=== PATIENT | male | born 1985 | race Hispanic/Latino ===

== ENCOUNTER 2016-11-17 16:36 | Emergency (ER) | payer MEDICAID ==
[2016-11-17 16:37] VITALS: BMI 30.7
[2016-11-17 17:04] VITALS: BP 117/77; PULSE 95; RESP 20; TEMP 98.5; O2SAT 97
[2016-11-17] MEDS ORDERED: Tmp-Smz 800 mg-160 mg DS Tab ONE (17:06)
[2016-11-17] MEDS ORDERED: Bacitracin 500 Units/gm Oint Foilpak UD ONE (17:06)
[2016-11-17] MEDS ORDERED: Amoxicillin-Clav 875-125 mg Tab PO STA (17:32)
[2016-11-17] MEDS ORDERED: Amoxicillin-Clav 875-125 mg Tab PO ONE (17:38)
--- NOTE | 2016-11-17 18:27 | C.PDOC ---
History Of Present Illness Patient is a 31 year old male who presents to the ER with a complaint of right ear pain. Patient was seen 2 days ago by PMD who gave Rx for ear drops. Denies fever, change in hearing, or discharge. Time Seen by Provider: 11/17/16 17:05 Chief Complaint (Nursing): ENT Problem History Per: Patient History/Exam Limitations: None Onset/Duration Of Symptoms: Days (2) Current Symptoms Are (Timing): Still Present Symptoms Have Been: Continuous Anticoagulant/Antiplatlet Use?: Unknown Recent Aspirin Use: Unknown Past Medical History Reviewed: Historical Data, Nursing Documentation, Vital Signs Vital Signs: Last Vital Signs Temp 98.5 F 11/17/16 16:58 Pulse 95 H 11/17/16 16:58 Resp 20 11/17/16 16:58 BP 117/77 11/17/16 16:58 Pulse Ox 97 11/17/16 18:33 - Medical History PMH: No Chronic Diseases Surgical History: No Surg Hx Family History: States: Unknown Family Hx - Social History Hx Tobacco Use: Yes Hx Alcohol Use: No Hx Substance Use: No - Immunization History Hx Tetanus Toxoid Vaccination: Yes Hx Influenza Vaccination: No Hx Pneumococcal Vaccination: No Review Of Systems Constitutional: Negative for: Fever, Chills ENT: Positive for: Ear Pain (Right). Negative for: Ear Discharge, Other ( Hearing change) Physical Exam - Physical Exam Appears: Non-toxic, No Acute Distress Skin: Normal Color, Warm, Dry Head: Atraumatic, Normacephalic Ear(s): Left: Normal, Right: TM Erythema, Other (Pain to pinna w/ tugging) Oral Mucosa: Moist Throat: Normal, No Erythema, No Exudate Neck: Normal, Supple Chest: Symmetrical, No Tenderness Cardiovascular: Rhythm Regular, No Murmur Respiratory: Normal Breath Sounds, No Wheezing Neurological/Psych: Oriented x3, Normal Speech, Normal Cognition ED Course And Treatment O2 Sat by Pulse Oximetry: 97 (Room air) Pulse Ox Interpretation: Normal Progress Note: Augmentin and toradol administered. Disposition - Disposition Referrals: Celestino Zhang, [Non-Staff] - Disposition: HOME/ ROUTINE Disposition Time: 17:20 Condition: GOOD Additional Instructions: Thank you for letting us take care of you today. Your provider was Dr. Chand. You were treated for an ear infection. The emergency medical care you received today was directed at your acute symptoms. If you were prescribed any medication, please fill it and take as directed. It may take several days for your symptoms to resolve. Return to the Emergency Department if your symptoms worsen, do not improve, or if you have any other problems. Please contact your doctor or call one of the physicians/clinics you have been referred to that are listed on the Patient Visit Information form that is included in your discharge packet. Bring any paperwork you were given at discharge with you along with any medications you are taking to your follow up visit. Our treatment cannot replace ongoing medical care by a primary care provider (PCP) outside of the emergency department. Thank you for allowing the [facility] team to be part of your care today. Follow up with your doctor in 2-3 days for re-evaluation. Prescriptions: Amoxicillin/Clavulanate [Augmentin 875 MG-125 MG] 1 tab PO BID #14 tab Ibuprofen [Motrin] 600 mg PO Q6 PRN #20 tab PRN Reason: Pain, Moderate (4-7) Instructions: Otitis Externa (ED) - Clinical Impression Clinical Impression: Otitis externa - Scribe Statement The provider has reviewed the documentation as recorded by the Scribe Abelardo Kenney All medical record entries made by the Scribe were at my direction and personally dictated by me. I have reviewed the chart and agree that the record accurately reflects my personal performance of the history, physical exam, medical decision making, and the department course for this patient. I have also personally directed, reviewed, and agree with the discharge instructions and disposition.
== END 2016-11-17 17:43 | disposition home or self-care (01) ==
LOC: C.ER 16:36
DX: H60.91 Unspecified otitis externa, right ear (principal)
CPT/HCPCS: 96372; 99283; J1885

== ENCOUNTER 2017-02-25 13:41 | Emergency (ER) | payer MEDICAID ==
[2017-02-25 13:53] VITALS: BMI 39.4
[2017-02-25 13:56] VITALS: TEMP 98.3
--- NOTE | 2017-02-25 14:48 | C.PDOC ---
History Of Present Illness 31 yr old male presents to the ER for evaluation of left cheek swelling which he woke up with this morning. Patient states the pain radiates down to neck. Patient states he has been having left sided tooth pain for the last couple days and has an appointment with the dentist tomorrow. Patient denies taking any medication, difficulty breathing, difficulty swallowing, fever, chills, throat swelling or throat pain. Time Seen by Provider: 02/25/17 14:13 Chief Complaint (Nursing): Abnormal Skin Integrity History Per: Patient History/Exam Limitations: None Onset/Duration Of Symptoms: Hrs Current Symptoms Are (Timing): Still Present Past Medical History Reviewed: Historical Data, Nursing Documentation, Vital Signs Vital Signs: Last Vital Signs Temp 98.3 F 02/25/17 13:53 Pulse 74 02/25/17 15:06 Resp 20 02/25/17 15:06 BP 120/70 02/25/17 15:06 Pulse Ox 100 02/25/17 15:38 Family History: States: No Known Family Hx - Social History Hx Tobacco Use: Yes Hx Alcohol Use: Yes Hx Substance Use: No - Immunization History Hx Tetanus Toxoid Vaccination: Yes Hx Influenza Vaccination: No Hx Pneumococcal Vaccination: No Review Of Systems Except As Marked, All Systems Reviewed And Found Negative. Constitutional: Positive for: Other ((+) Left cheek swelling). Negative for: Fever, Chills ENT: Negative for: Mouth Swelling, Throat Pain Physical Exam - Physical Exam Appears: Non-toxic, No Acute Distress Skin: Warm, Dry, No Rash Head: Atraumatic, Normacephalic Eye(s): bilateral: Normal Inspection, PERRL, EOMI Ear(s): Bilateral: Normal Nose: Normal Oral Mucosa: Moist Teeth: Caries, Other (Left lateral mandibular incisor tenderness) Gingiva: No Erythema, No Swelling Throat: Normal, No Erythema, No Exudate Neck: Normal, Normal ROM, Supple Lymphatic: Adenopathy (Left submandibular lymphadenopathy) Chest: Symmetrical Cardiovascular: Rhythm Regular, No Murmur Respiratory: Normal Breath Sounds, No Rales, No Rhonchi, No Stridor, No Wheezing Extremity: Normal ROM, No Swelling Neurological/Psych: Oriented x3, Normal Speech, Normal Motor ED Course And Treatment O2 Sat by Pulse Oximetry: 100 (RA) Pulse Ox Interpretation: Normal Progress Note: Pt is afebrile. No SOB. No difficulty breathing or swallowing. Instructed to follow up with dentist as scheudled tomorrow and OMD in 1-2 days . Disposition - Disposition Disposition: HOME/ ROUTINE Disposition Time: 14:45 Condition: STABLE Additional Instructions: Follow up with your primary medical doctor or clinic in 2-5 days for further evaluation. Take medications as prescribed. Return to the emergency department at any time if symptoms persist or worsen. 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 - Scribe Statement The provider has reviewed the documentation as recorded by the Scribe Reshma Heaton All medical record entries made by the Scribe were at my direction and personally dictated by me. I have reviewed the chart and agree that the record accurately reflects my personal performance of the history, physical exam, medical decision making, and the department course for this patient. I have also personally directed, reviewed, and agree with the discharge instructions and disposition.
[2017-02-25 15:07] VITALS: BP 120/70; PULSE 74; RESP 20
[2017-02-25 15:36] VITALS: O2SAT 100
== END 2017-02-25 15:25 | disposition home or self-care (01) ==
LOC: C.ER 13:41
DX: K08.89 Other specified disorders of teeth and supporting structures (principal)

== ENCOUNTER 2017-04-07 19:11 | Emergency (ER) | payer MEDICAID ==
[2017-04-07 19:11] VITALS: BMI 39.4
[2017-04-07 19:24] VITALS: O2SAT 98
--- NOTE | 2017-04-07 19:28 | C.PDOC ---
History Of Present Illness 31 c/o painless swelling of his penis for the last 5 days and diffuse abdominal pain for the last week. no exac or reliev fx. denies any pmh or psh. he admits to pcp use last yesterday. unaware of any trauma. denies urinary complaints. Time Seen by Provider: 04/07/17 19:27 Chief Complaint (Nursing): Male Genitourinary Past Medical History Vital Signs: Last Vital Signs Temp 98 F 04/07/17 21:57 Pulse 80 04/07/17 21:57 Resp 14 04/07/17 21:57 BP 130/70 04/07/17 21:57 Pulse Ox 98 04/07/17 21:57 Family History: States: Other Other Family History: nc - Social History Hx Tobacco Use: Yes Hx Alcohol Use: Yes Hx Substance Use: Yes - Immunization History Hx Tetanus Toxoid Vaccination: Yes Hx Influenza Vaccination: No Hx Pneumococcal Vaccination: No Review Of Systems Constitutional: Negative for: Fever, Chills Cardiovascular: Negative for: Chest Pain Respiratory: Negative for: Cough, Shortness of Breath Gastrointestinal: Positive for: Abdominal Pain. Negative for: Nausea, Vomiting , Diarrhea Genitourinary: Negative for: Dysuria, Penile Discharge, Scrotal Pain, Penile Pain Physical Exam - Physical Exam Appears: Non-toxic, No Acute Distress Skin: Warm, Dry Eye(s): bilateral: PERRL Nose: No Epistaxis Oral Mucosa: Moist Cardiovascular: Rhythm Regular Respiratory: No Decreased Breath Sounds, No Accessory Muscle Use Gastrointestinal/Abdominal: Soft, Tenderness (mild mainly right side), No Distention, No Guarding, No Rebound Male Genital: No Testicular Tenderness, No Testicular Swelling, No Scrotal Swelling, Other (no significant abnormality of the penis is noted- no significant swelling, erythema, discharge, lesions, or tenderness) Neurological/Psych: Oriented x3 ED Course And Treatment - Laboratory Results Result Diagrams: 04/07/17 20:05 04/07/17 20:05 O2 Sat by Pulse Oximetry: 98 Medical Decision Making Medical Decision Making: CT abdo/pelvis EXAM: CT Abdomen and Pelvis With Intravenous Contrast CLINICAL HISTORY: 31 years old, male; Pain; Abdominal pain TECHNIQUE: Axial computed tomography images of the abdomen and pelvis with intravenous contrast. All CT scans at this facility use one or more dose reduction techniques, viz.: automated exposure control; ma/kV adjustment per patient size (including targeted exams where dose is matched to indication; i.e. head); or iterative reconstruction technique. Coronal and sagittal reformatted images were created and reviewed. CONTRAST: 100 mL of [id number] administered intravenously. COMPARISON: No relevant prior studies available. FINDINGS: Lower thorax: Hypoventilatory changes/atelectasis. ABDOMEN: Liver: No acute abnormality as visualized. No mass. Gallbladder and bile ducts: No calcified stones. No ductal dilation. Ultrasound can provide more sensitive evaluation of the biliary system. Pancreas: No acute abnormality as visualized. Spleen: No splenomegaly. Adrenals: No acute abnormality as visualized Kidneys and ureters: Symmetric enhancement. No hydronephrosis. Stomach and bowel: No acute abnormality as visualized. No obstruction. No definitive focus of mucosal thickening. Retained fecal material in the colon. Appendix: No findings to suggest acute appendicitis. PELVIS: Bladder: No acute abnormality as visualized. Reproductive: No acute abnormality as visualized. ABDOMEN and PELVIS: Intraperitoneal space: No acute No free air. No significant fluid collection. Bones: No acute fracture. Minimal degenerative changes. Vasculature: No acute abnormality as visualized. No abdominal aortic aneurysm. Lymph nodes: No acute abnormality as visualized. No enlarged lymph nodes. IMPRESSION: No definitive acute CT finding to correspond to reported history. Disposition - Disposition Referrals: [facility] at [facility] [Outside] Jose Galvez Jr., MD [Staff Provider] - Disposition: HOME/ ROUTINE Disposition Time: 21:44 Condition: STABLE Additional Instructions: Please follow up with a primary doctor and also with the urologist. Return to the ER for any worsening symptoms, severe pain, repeated vomiting, fever or for any other concerns. Instructions: Acute Abdominal Pain (ED) Forms: General Discharge Instructions, [employer] (Mongolian) - Clinical Impression Clinical Impression: Abdominal pain
[2017-04-07 20:08] LABS: BASO % 0.5 % (0.0-2.0); EOS # 0.1 K/uL (0.0-0.7); EOS % 1.2 % (0.0-4.0); HEMATOCRIT 46.1 % (35.0-51.0); LYMPH # 1.3 K/uL (1.0-4.3); LYMPH % 15.3 % (20.0-40.0); MEAN CELL VOLUME 85.7 fL (80.0-94.0); MEAN CORPUSCULAR HEMOGLOBIN 28.6 pg (27.0-31.0); MEAN CORPUSCULAR HGB CONC 33.4 g/dL (33.0-37.0); MEAN PLATELET VOLUME 9.4 fL (7.2-11.7); MONO # 0.5 K/uL (0.0-0.8); MONO % 6.2 % (0.0-10.0); NRBC % 0.1 % (0.0-2.0); RED CELL DISTRIBUTION WIDTH 13.2 % (11.5-14.5); WHITE BLOOD COUNT 8.7 K/uL (4.8-10.8)
[2017-04-07 20:26] LABS: ALB/GLOB RATIO 1.5 (1.0-2.1); ALKALINE PHOSPHATASE 83 U/L (38-126); ALT/SGPT 48 U/L (21-72); AST/SGOT 20 U/L (17-59); BILIRUBIN,TOTAL 0.6 mg/dL (0.2-1.3); BLOOD UREA NITROGEN 15 mg/dL (9-20); CALCIUM 8.9 mg/dl (8.6-10.4); CARBON DIOXIDE 23 mmol/L (22-30); CHLORIDE 101 mmol/L (98-107); GFR AFRICAN-AMERICAN > 60; GLUCOSE,RANDOM 83 mg/dL (75-110); POTASSIUM 3.8 mmol/L (3.6-5.2); SODIUM 137 mmol/L (132-148); TOTAL PROTEIN 7.8 g/dL (6.3-8.3)
[2017-04-07 20:27] LABS: RBC URINE < 1 /hpf (0-3); URINE BILIRUBIN NEGATIVE (NEGATIVE); URINE BLOOD NEGATIVE (NEGATIVE); URINE COLOR Straw (YELLOW); URINE GLUCOSE (UA) NORMAL (Normal); URINE KETONE NEGATIVE (NEGATIVE); URINE LEUKOCYTE ESTERASE NEG Leu/uL (Negative); URINE PROTEIN NEGATIVE (NEGATIVE); URINE UROBILINOGEN NORMAL mg/dL (0.2-1.0); WBC URINE < 1 /hpf (0-5)
[2017-04-07] MEDS ORDERED: Iodixanol 320 MG/ML 100 ML BOTTLE IV ONE (20:56)
--- NOTE | 2017-04-07 21:41 | CT ---
EXAM: CT Abdomen and Pelvis With Intravenous Contrast CLINICAL HISTORY: 31 years old, male; Pain; Abdominal pain TECHNIQUE: Axial computed tomography images of the abdomen and pelvis with intravenous contrast. All CT scans at this facility use one or more dose reduction techniques, viz.: automated exposure control; ma/kV adjustment per patient size (including targeted exams where dose is matched to indication; i.e. head); or iterative reconstruction technique. Coronal and sagittal reformatted images were created and reviewed. CONTRAST: 100 mL of administered intravenously. COMPARISON: No relevant prior studies available. FINDINGS: Lower thorax: Hypoventilatory changes/atelectasis. ABDOMEN: Liver: No acute abnormality as visualized. No mass. Gallbladder and bile ducts: No calcified stones. No ductal dilation. Ultrasound can provide more sensitive evaluation of the biliary system. Pancreas: No acute abnormality as visualized. Spleen: No splenomegaly. Adrenals: No acute abnormality as visualized Kidneys and ureters: Symmetric enhancement. No hydronephrosis. Stomach and bowel: No acute abnormality as visualized. No obstruction. No definitive focus of mucosal thickening. Retained fecal material in the colon. Appendix: No findings to suggest acute appendicitis. PELVIS: Bladder: No acute abnormality as visualized. Reproductive: No acute abnormality as visualized. ABDOMEN and PELVIS: Intraperitoneal space: No acute No free air. No significant fluid collection. Bones: No acute fracture. Minimal degenerative changes. Vasculature: No acute abnormality as visualized. No abdominal aortic aneurysm. Lymph nodes: No acute abnormality as visualized. No enlarged lymph nodes. IMPRESSION: No definitive acute CT finding to correspond to reported history.
[2017-04-07 21:58] VITALS: BP 130/70; PULSE 80; RESP 14; TEMP 98
== END 2017-04-07 21:58 | disposition home or self-care (01) ==
LOC: C.ER 19:11
DX: R10.9 Unspecified abdominal pain (principal); Z87.891 Personal history of nicotine dependence
CPT/HCPCS: 74177; 80053; 81001; 83690; 85025; 99283; Q9967

== ENCOUNTER 2017-06-18 00:36 | Emergency (ER) | payer MEDICAID ==
[2017-06-18 00:37] VITALS: BMI 39.4
[2017-06-18 00:48] VITALS: BP 122/80; PULSE 74; RESP 74; TEMP 98.2; O2SAT 96
--- NOTE | 2017-06-18 01:01 | C.PDOC ---
History Of Present Illness 32 year old male presents to the ER with a complaint of nasal congestion and sinus pressure for the past few months. Patient states he used an unknown nasal spray with no relief. Denies cough, SOBor fever Time Seen by Provider: 06/18/17 00:45 Chief Complaint (Nursing): Cough, Cold, Congestion History Per: Patient History/Exam Limitations: no limitations Onset/Duration Of Symptoms: Days Current Symptoms Are (Timing): Still Present Location Of Pain: None Sick Contacts (Context): None Associated Symptoms: Nasal Congestion, Other (Sinus pressure) Ear Symptoms: Bilateral: None Recent travel outside of the [place]: No Past Medical History Reviewed: Historical Data, Nursing Documentation, Vital Signs Vital Signs: Last Vital Signs Temp 98.2 F 06/18/17 00:47 Pulse 74 06/18/17 00:47 Resp 74 H 06/18/17 00:47 BP 122/80 06/18/17 00:47 Pulse Ox 96 06/18/17 01:35 Family History: States: Unknown Family Hx - Social History Hx Tobacco Use: Yes Hx Alcohol Use: No (DENIED) Hx Substance Use: Yes - Immunization History Hx Tetanus Toxoid Vaccination: Yes Hx Influenza Vaccination: No Hx Pneumococcal Vaccination: No Review Of Systems ENT: Positive for: Nose Congestion, Other (Sinus pressure) Respiratory: Negative for: Cough, Shortness of Breath Physical Exam - Physical Exam Appears: Non-toxic, No Acute Distress Skin: Normal Color, Warm, Dry Head: Atraumatic, Normacephalic, Tenderness (Frontal sinus) Eye(s): bilateral: Normal Inspection, PERRL Ear(s): Bilateral: Normal Nose: Normal Oral Mucosa: Moist Throat: Normal, No Erythema, No Exudate Neck: Normal, No Midline Cervical Tenderness, No Paracervical Tenderness, Supple Chest: Symmetrical, No Tenderness Cardiovascular: Rhythm Regular Respiratory: Normal Breath Sounds, No Rales, No Rhonchi, No Wheezing Gastrointestinal/Abdominal: Soft, No Tenderness Neurological/Psych: Oriented x3, Normal Speech ED Course And Treatment O2 Sat by Pulse Oximetry: 96 (Room air) Pulse Ox Interpretation: Normal Progress Note: Patient is resting comfortably in no acute distress. Will discharge home with Rx and instructions to follow up with clinic or return to ER if symptoms worsen. 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 - Scribe Statement The provider has reviewed the documentation as recorded by the Scribeliezer Kenney All medical record entries made by the Ozielibeliezer were at my direction and personally dictated by me. I have reviewed the chart and agree that the record accurately reflects my personal performance of the history, physical exam, medical decision making, and the department course for this patient. I have also personally directed, reviewed, and agree with the discharge instructions and disposition.
== END 2017-06-18 01:05 | disposition home or self-care (01) ==
LOC: C.ER 00:36
DX: J30.9 Allergic rhinitis, unspecified (principal); Z87.891 Personal history of nicotine dependence

== ENCOUNTER 2017-06-25 20:57 | Emergency (ER) | payer MEDICAID ==
[2017-06-25 20:58] VITALS: BMI 39.4
[2017-06-25 21:09] VITALS: BP 155/82; PULSE 78; RESP 18; TEMP 98.3; O2SAT 97
--- NOTE | 2017-06-25 21:39 | C.PDOC ---
History Of Present Illness 32 year old male presents to the ER with a complaint of a pimple behind his right ear for the past 2 days after getting his hair cut. Patient reports he has pain to the area and to the right ear. Denies fever or drainage. Time Seen by Provider: 06/25/17 21:27 Chief Complaint (Nursing): Abnormal Skin Integrity History Per: Patient History/Exam Limitations: no limitations Onset/Duration Of Symptoms: Days Current Symptoms Are (Timing): Still Present Location Of Injury: Right: Face (ear area) Quality Of Symptoms: Painful. denies: Draining Recent travel outside of the [place]: No Past Medical History Reviewed: Historical Data, Nursing Documentation, Vital Signs Vital Signs: Last Vital Signs Temp 98.3 F 06/25/17 21:07 Pulse 78 06/25/17 21:07 Resp 18 06/25/17 21:07 BP 155/82 H 06/25/17 21:07 Pulse Ox 97 06/26/17 00:23 Family History: States: Unknown Family Hx - Social History Hx Tobacco Use: Yes Hx Alcohol Use: No (DENIED) Hx Substance Use: Yes - Immunization History Hx Tetanus Toxoid Vaccination: Yes Hx Influenza Vaccination: No Hx Pneumococcal Vaccination: No Review Of Systems Constitutional: Negative for: Fever, Chills ENT: Positive for: Ear Pain (Right) Skin: Positive for: Other (Pimple) Physical Exam - Physical Exam Appears: Non-toxic, No Acute Distress Skin: Normal Color, Warm, Dry Head: Normacephalic, Abrasion (0.25cm to the right preauricular area at the base beardline with localized erythema. No induration, fluctuance, swelling or warmth.) Eye(s): bilateral: Normal Inspection Ear(s): Left: Normal, Right: Normal Oral Mucosa: Moist Neurological/Psych: Oriented x3, Normal Speech ED Course And Treatment O2 Sat by Pulse Oximetry: 97 (room air) Pulse Ox Interpretation: Normal Progress Note: Motrin administered and bacitracin applied. Patient is resting comfortably in the ER in no acute distress. Patient reassured, given proper wound care instructions and advised to follow up with PMD for further evaluation or return if symptoms worsen. Disposition - Disposition Referrals: Nii Vicente [Primary Care Provider] - Disposition: HOME/ ROUTINE Disposition Time: 21:39 Condition: STABLE Additional Instructions: Apply bacitracin or neosporin oint to area May take tylenol or advil for pain Return to ER if worse Instructions: Abrasion (ED) Forms: [employer] (Slovenian) - Clinical Impression Clinical Impression: Abrasion - PA / [employer] / Resident Statement MD/DO has reviewed & agrees with the documentation as recorded. - Scribe Statement The provider has reviewed the documentation as recorded by the Scribe Abelardo Kenney All medical record entries made by the Scribe were at my direction and personally dictated by me. I have reviewed the chart and agree that the record accurately reflects my personal performance of the history, physical exam, medical decision making, and the department course for this patient. I have also personally directed, reviewed, and agree with the discharge instructions and disposition.
[2017-06-25] MEDS ORDERED: Bacitracin 500 Units/gm Oint Foilpak UD ONE (21:50)
[2017-06-25] MEDS ORDERED: Bacitracin 500 Units/gm Oint Foilpak UD TOP ONE (21:58)
== END 2017-06-25 22:05 | disposition home or self-care (01) ==
LOC: C.ER 20:57 → SUPCPDRO 20:57 → C.ER 22:05
DX: S00.81XA Abrasion of other part of head, initial encounter (principal); X58.XXXA Exposure to other specified factors, initial encounter; Y92.89 Other specified places as the place of occurrence of the external cause

== ENCOUNTER 2017-07-06 21:37 | Emergency (ER) | payer MEDICAID ==
[2017-07-06 21:37] VITALS: BMI 39.4
[2017-07-06 21:53] VITALS: BP 135/91; TEMP 97.5
--- NOTE | 2017-07-06 22:12 | C.PDOC ---
History Of Present Illness 32 year old male with no significant PMHx presents to the ED intoxicated. Patient is c/o persistent numbness to his left pinky along with decreased sensation to the ulnar aspect of left 5th digit. Patient also states he has a sinus condition and is having a CT scan done tomorrow. Patient denies fever, chills, SI/HI, hallucinations, weakness, numbness. Chief Complaint (Nursing): Substance Abuse History Per: Patient History/Exam Limitations: intoxication Onset/Duration Of Symptoms: Hrs Current Symptoms Are (Timing): Still Present Suicide/Self Injury Attempted (Context): None Modifying Factor(s): Marijuana Associated Symptoms: denies: Depression, Suicidal Thoughts, Suicidal Plan Recent travel outside of the [place]: No Additional History Per: Patient Past Medical History Reviewed: Historical Data, Nursing Documentation, Vital Signs Vital Signs: Last Vital Signs Temp 97.5 F L 07/06/17 21:49 Pulse 80 07/06/17 22:47 Resp 18 07/06/17 22:47 BP 135/91 H 07/06/17 21:49 Pulse Ox 100 07/06/17 22:47 - Medical History PMH: No Chronic Diseases Surgical History: No Surg Hx Family History: States: Unknown Family Hx - Social History Hx Tobacco Use: Yes Hx Alcohol Use: No (DENIED) Hx Substance Use: Yes - Immunization History Hx Tetanus Toxoid Vaccination: Yes Hx Influenza Vaccination: No Hx Pneumococcal Vaccination: No Review Of Systems Constitutional: Negative for: Fever, Chills Cardiovascular: Negative for: Chest Pain, Palpitations Respiratory: Negative for: Cough, Shortness of Breath Gastrointestinal: Negative for: Nausea, Vomiting, Abdominal Pain Skin: Negative for: Rash Neurological: Negative for: Weakness, Numbness, Headache Physical Exam - Physical Exam Appears: Non-toxic, Other (Obese) Skin: Normal Color, Warm, Dry Head: Atraumatic, Normacephalic Eye(s): bilateral: Normal Inspection Nose: No Discharge, No Epistaxis Oral Mucosa: Moist Neck: Normal ROM, No Paracervical Tenderness, No Step Off Deformity, Supple Chest: Symmetrical Cardiovascular: Rhythm Regular, No Murmur Respiratory: Normal Breath Sounds, No Rales, No Rhonchi, No Wheezing Gastrointestinal/Abdominal: Soft, No Tenderness, No Guarding, No Rebound Extremity: Normal ROM, No Tenderness, No Deformity, No Swelling Neurological/Psych: Oriented x3, Normal Motor, Normal Sensation, Other (No neurological deficits, median and ulnar nerve fucntion intact, 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 I have reviewed the chart and agree that the record accurately reflects my personal performance of the history, physical exam, medical decision making, and the department course for this patient. I have also personally directed, reviewed, and agree with the discharge instructions and disposition.
[2017-07-06 22:47] VITALS: PULSE 80; RESP 18
[2017-07-07 05:10] VITALS: O2SAT 97
== END 2017-07-06 22:56 | disposition home or self-care (01) ==
LOC: C.ER 21:37
DX: G56.22 Lesion of ulnar nerve, left upper limb (principal)

== ENCOUNTER 2017-08-11 07:29 | Emergency (ER) | payer MEDICAID ==
[2017-08-11 07:30] VITALS: BMI 39.4
--- NOTE | 2017-08-11 07:51 | C.PDOC ---
History Of Present Illness 32 year old male brought to the ED by ambulance for evaluation of substance abuse after he was found outside prior to arrival. Patient denies current physical complaints, or suicidal/homicidal ideations. Time Seen by Provider: 08/11/17 07:38 Chief Complaint (Nursing): Substance Abuse History Per: Patient, EMS History/Exam Limitations: intoxication Onset/Duration Of Symptoms: Unknown Current Symptoms Are (Timing): Still Present Suicide/Self Injury Attempted (Context): None Modifying Factor(s): Other (PCP) Severity: Moderate Associated Symptoms: denies: Suicidal Thoughts, Suicidal Plan Involuntary Hold By: Emergency Physician Additional History Per: Patient Past Medical History Reviewed: Historical Data, Nursing Documentation, Vital Signs Vital Signs: Last Vital Signs Temp 97.7 F 08/11/17 10:07 Pulse 84 08/11/17 12:29 Resp 19 08/11/17 12:29 BP 128/80 08/11/17 12:29 Pulse Ox 98 08/11/17 12:29 - Medical History PMH: No Chronic Diseases Surgical History: No Surg Hx Family History: States: No Known Family Hx - Social History Hx Tobacco Use: Yes Hx Alcohol Use: Yes Hx Substance Use: Yes - Immunization History Hx Tetanus Toxoid Vaccination: Yes Hx Influenza Vaccination: No Hx Pneumococcal Vaccination: No Review Of Systems Except As Marked, All Systems Reviewed And Found Negative. Cardiovascular: Negative for: Chest Pain Respiratory: Negative for: Shortness of Breath Gastrointestinal: Negative for: Nausea, Vomiting, Abdominal Pain, Diarrhea Psych: Positive for: Other (substance abuse). Negative for: Suicidal ideation Physical Exam - Physical Exam Appears: Non-toxic, No Acute Distress, Other (appears under influence of drugs, smells of PCP) Skin: Normal Color, Warm, Dry Head: Atraumatic, Normacephalic Eye(s): bilateral: Other (pupils dilated B/L ) Oral Mucosa: Moist Neck: Supple Cardiovascular: Rhythm Regular Respiratory: Normal Breath Sounds, No Rales, No Rhonchi, No Wheezing Extremity: Normal ROM, No Deformity, No Swelling Extremity: Bilateral: Atraumatic Neurological/Psych: Other (awake, alert) ED Course And Treatment O2 Sat by Pulse Oximetry: 96 (on RA) Pulse Ox Interpretation: Normal Progress Note: Accucheck and UDS ordered and reviewed. Results are positive for phencyclidine use. Reevaluation Time: 12:20 Reassessment Condition: Improved (On reassessment, patient is AAOx3, ambulating normally in ED and clinically sober. Will discharge.) Disposition Counseled Patient/Family Regarding: Studies Performed, Diagnosis, Need For Followup - Disposition Referrals: [facility] [Outside] Disposition: HOME/ ROUTINE Disposition Time: 12:25 Condition: STABLE Instructions: Drug Abuse and Drug Addiction (DC) Forms: [employer] (Latvian) Print Language: [place]ONE[place] - Clinical Impression Clinical Impression: PCP abuse - Scribe Statement The provider has reviewed the documentation as recorded by the Scribe (Kaye Cox) Provider Attestation: All medical record entries made by the Scribe were at my direction and personally dictated by me. I have reviewed the chart and agree that the record accurately reflects my personal performance of the history, physical exam, medical decision making, and the department course for this patient. I have also personally directed, reviewed, and agree with the discharge instructions and disposition.
[2017-08-11 08:40] LABS: BARBITURATES, UR NEGATIVE (NEGATIVE); BENZODIAZEPINES, UR NEGATIVE (NEGATIVE); OPIATES, UR NEGATIVE (NEGATIVE)
[2017-08-11 08:57] LABS: PHENCYCLIDINE, UR POSITIVE (NEGATIVE)
[2017-08-11 10:08] VITALS: TEMP 97.7
[2017-08-11 12:30] VITALS: BP 128/80; PULSE 84; RESP 19
[2017-08-12 09:30] VITALS: O2SAT 96
== END 2017-08-11 12:45 | disposition home or self-care (01) ==
LOC: C.ER 07:29
DX: F16.10 Hallucinogen abuse, uncomplicated (principal)